=== PATIENT | male | born 1960 | race Caucasian/White ===

== ENCOUNTER 2023-10-13 04:04 | Emergency (ER) | payer OTHER, SELFPAY ==
[2023-10-13 04:10] VITALS: BP 199/125; PULSE 99; RESP 18; O2SAT 99; BMI 33.0
[2023-10-13 04:15] VITALS: BP 190/135; PULSE 93; RESP 15; O2SAT 96
--- NOTE | 2023-10-13 04:15 | ECG_ITS ---
[facility], Formerly 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 Measurements Intervals [place] Rate: 92 P: 42 [place]: 201 QRS: 74 QRSD: 93 T: 36 QT: 350 QTc: 434 Interpretive Statements SINUS RHYTHM No previous ECG available for comparison Electronically Signed On 10-13-2023 23:28:17 CDT by Leni Vasquez M.D. [id number]
--- NOTE | 2023-10-13 04:16 | ED_ITS ---
HPI - Skin/Abscess/Foreign Bdy 2 General: Chief complaint: Back Pain/Injury Stated complaint: lower back injury Time Seen by Provider: 10/13/23 04:07 History of Present Illness: Patient presents to the ER with complaint of bilateral 3 inch red area on his right shoulder blade region. Patient is a pulled a tick off this several days ago and he felt some itching and when he looked he had this big red area. Patient has been on Augmentin for the last 2 days from an old prescription he had and he has taken pictures of this spot every day and it does look mildly improved. Patient also says noticed some palpitations and his blood pressure has been up since he is start taking the antibiotics. Related Data Previous Rx's Medication Instructions Recorded amoxicillin 875 mg-potassium 1 tab PO Q12H #20 tabs 10/13/23 clavulanate 125 mg tablet Allergies Allergy/AdvReac Type Severity Reaction Status Date / Time No Known Allergies Allergy Verified 10/13/23 04:15 Review of Systems 2 General: Reports: 10 or more systems reviewed and unremarkable except in HPI and below Physical Exam 2 Const: COMMON NORMALS: no acute distress, average body habitus, patient oriented x3, no limitations, healthy appearing, alert and well nourished HENMT: COMMON NORMALS: normocephalic, atraumatic, hearing grossly normal bilaterally, external ears normal, Normal external nose present and moist oral mucous membranes HEAD & SCALP: normocephalic and atraumatic NOSE: Normal external nose present EXTERNAL EAR: Yes external ears normal Neck/C-Spine: COMMON NORMALS: no JVD Chest: COMMONS NORMALS: normal inspection of the chest and normal palpation of entire chest wall Resp: COMMON NORMALS: normal respiratory effort, No retractions, No use of accessory muscles and clear to auscultation bilaterally AUSCULTATION: clear to auscultation bilaterally Cardio: COMMON NORMALS: no JVD, regular rate, regular rhythm, S1 normal heart sound present, S2 normal heart sound present, No gallops present (Cardio), No clicks present (Cardio), No murmurs present (Cardio) and No rub (Cardio) R ATE: regular rate RHYTHM: regular rhythm HEART SOUNDS: S1 normal heart sound present and S2 normal heart sound present GI: COMMON NORMALS: Normal to inspection, nondistended, normoactive bowel sounds present, Soft to palpation, non-tender, No hepatosplenomegaly present and no masses PALPATION: Yes Soft to palpation and Yes No hepatosplenomegaly present Neuro: COMMON NORMALS: patient oriented x3 SENSORIUM/ORIENTATION: Yes alert Skin: NARRATIVE SKIN EXAM: Approximately a 3 inch diameter flat reddened area on the right scapular region. No obvious fluctuance or discharge, looks like it may be improving from his pictures. Course 2 Vital Signs: Vital signs: Vital Signs Pulse Rate 94 10/13/23 05:15 Respiratory Rate 16 10/13/23 05:15 Blood Pressure 159/112 10/13/23 05:15 Pulse Oximetry 94 10/13/23 05:15 Oxygen Delivery Me thod Room Air 10/13/23 04:15 MDM - Skin/Abscess/Foreign Bdy Medicial Decision Making Lab work was reviewed, prescription for Augmentin will be called into patient's pharmacy. Patient be discharged home to follow-up with his PCP. Differential Diagnosis Likely cellulitis Medical Records I reviewed the patient's medical records. Lab Data I reviewed the patient's lab results. 10/13/23 04:23 10/13/23 04:23 Laboratory Results WBC 6.69 10^3/uL (3.29-11.43) 10/13/23 04:23 RBC 5.14 10^6/uL (3.85-5.65) 10/13/23 04:23 Hgb 15.10 g/dL (11.27-16.99) 10/13/23 04:23 Hct 45.6 % (37-53) 10/13/23 04:23 MCV 88.7 fl (82-101) 10/13/23 04:23 MCH 29.4 pg (27-33) 10/13/23 04:23 MCHC 33.1 g/dL (30-55) 10/13/23 04:23 RDW 13.1 % (12.1-15.1) 10/13/23 04:23 Plt Count 205 10^3/cmm (157-399) 10/13/23 04:23 MPV 10.5 fL (7.4-10.4) H 10/13/23 04:23 Neut % (Auto) 59.8 % 10/13/23 04:23 Lymph % (Auto) 29.4 % 10/13/23 04:23 [place] % (Auto) 10.0 % 10/13/23 04:23 Eos % (Auto) 0.4 % 10/13/23 04:23 Baso % (Auto) 0.3 % 10/13/23 04:23 Neut # (Auto) 3.99 10^3/uL (1.8-7.7) 10/13/23 04:23 Lymph # (Auto) 2.0 10^3/uL (0.8-4.8) 10/13/23 04:23 Swift # (Auto) 0.7 10^3/uL (0.2-0.9) 10/13/23 04:23 Eos # (Auto) 0.0 10^3/uL (0.0-0.8) 10/13/23 04:23 Baso # (Auto) 0.0 10^3/uL (0.0-0.1) 10/13/23 04:23 Nucleated RBC % (auto) 0 % 10/13/23 04:23 Nucleated RBCs # 0.0 /100WBC 10/13/23 04:23 Sodium 139 mmol/L (136-145) 10/13/23 04:23 Potassium 3.8 mmol/L (3.5-5.1) 10/13/23 04:23 Chloride 98 mmol/L (98-107) 10/13/23 04:23 Carbon Dioxide 28 mmol/L (22-29) 10/13/23 04:23 Anion Gap 16.8 (5-19) 10/13/23 04:23 BUN 18 mg/dL (8-23) 10/13/23 04:23 Creatinine 0.7 mg/dL (0.7-1.2) 10/13/23 04:23 GFR Calculation 113.9 mL/min (90-130) 10/13/23 04:23 Glucose 166 mg/dL (65-115) H 10/13/23 04:23 Calculated Osmolality 294 mOsm/kg (285-295) 10/13/23 04:23 Calcium 9.3 mg/dL (8.5-10.5) 10/13/23 04:23 Total Bilirubin 0.2 mg/dL (0.15-1.2) 10/13/23 04:23 AST 20 U/L (0-40) 10/13/23 04:23 ALT 36 U/L (0-41) 10/13/23 04:23 Alkaline Phosphatase 94 U/L (40-130) 10/13/23 04:23 Total Protein 7.2 g/dL (6.6-8.7) 10/13/23 04:23 Albumin 4.5 g/dL (3.5-5.2) 10/13/23 04:23 Globulin 2.7 g/dL (1.3-4.6) 10/13/23 04:23 Procalcitonin 0.07 ng/mL (0-0.5) 10/13/23 04:23 No radiology studies performed this visit Discharge Plan Discharge Patient Disposition: Home Clinical Impression: Cellulitis Qualifiers: Site of cellulitis of trunk: back Prescriptions: New amoxicillin-pot clavulanate 875-125 mg tablet 1 tab PO Q12H Qty: 20 0RF Discharge Orders: Discharge ED (Routine); Ordered 10/13/23 Ordered By: Anshul Arias Patient Instructions: Cellulitis (ED) Activity Restrictions/Additional Instructions: Your lab work was unremarkable, a new prescription for Augmentin was called into your pharmacy. Please start taking it immediately and take it as directed. Please follow-up with your family practice physician within the next 7 days for further evaluation and treatment as needed. 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
[2023-10-13 04:28] LABS: Basophils % 0.3 %; Eosinophils % 0.4 %; Hematocrit 45.6 % (37-53); Lymphocytes % 29.4 %; Mean Corpuscular HGB Conc 33.1 g/dL (30-55); Mean Corpuscular Hemoglobin 29.4 pg (27-33); Mean Corpuscular Volume 88.7 fl (82-101); Mean Platelet Volume 10.5 fL (7.4-10.4); Monocytes # 0.7 10^3/uL (0.2-0.9); Neutrophils # 3.99 10^3/uL (1.8-7.7); Neutrophils % 59.8 %; Nucleated Red Blood Cells % 0 %; Platelet Count 205 10^3/cmm (157-399); Red Blood Count 5.14 10^6/uL (3.85-5.65); Red Cell Distribution Width 13.1 % (12.1-15.1); White Blood Count 6.69 10^3/uL (3.29-11.43)
[2023-10-13 04:42] VITALS: BP 190/135
[2023-10-13] MEDS: cloNIDine 0.1 mg Tablet 0.2 MG PO (04:42)
[2023-10-13 04:46] LABS: Alanine Aminotransferase 36 U/L (0-41); Albumin Level 4.5 g/dL (3.5-5.2); Alkaline Phosphatase 94 U/L (40-130); Anion Gap 16.8 (5-19); Aspartate Amino Transferase 20 U/L (0-40); Blood Urea Nitrogen 18 mg/dL (8-23); Calcium 9.3 mg/dL (8.5-10.5); Carbon Dioxide 28 mmol/L (22-29); Chloride 98 mmol/L (98-107); Creatinine Clr Calc Pharmacy 130.6714; Globulin 2.7 g/dL (1.3-4.6); Glomerular Filtration Rate 113.9 mL/min (90-130); Glucose 166 mg/dL (65-115); Osmolality Calculated 294 mOsm/kg (285-295); Potassium 3.8 mmol/L (3.5-5.1); Sodium 139 mmol/L (136-145); Total Bilirubin 0.2 mg/dL (0.15-1.2); Total Protein 7.2 g/dL (6.6-8.7)
[2023-10-13 04:53] LABS: Procalcitonin 0.07 ng/mL (0-0.5)
[2023-10-13 04:59] VITALS: BP 167/124; PULSE 93; RESP 15; O2SAT 96
[2023-10-13 05:15] VITALS: BP 159/112; PULSE 94; RESP 16; O2SAT 94
== END 2023-10-13 05:16 | disposition home or self-care (01) ==
PROVIDERS: Emergency Provider Emergency Medicine
DX: L03.312 Cellulitis of back [any part except buttock and flank] (principal)
CPT/HCPCS: 80053; 84145; 85025; 86618; 86666; 86757; 93005; 99284